=== PATIENT | female | born 1990 | race African-American/Black ===

== ENCOUNTER 2016-07-30 12:31 | Emergency (ER) | payer SELFPAY ==
[~2016-07-30] VITALS: Ht 167.6 cm; Wt 114.5 kg
[~2016-07-30 12:31] MED LIST: 00186-0372-20 IH; ADVAIR IH; ALBUTEROL SULFAT3 M3; ALBUTEROL SULFAT3 M3 IH; ALBUTEROL0.83 MG/ML IH; ALBUTEROL1.25 MG/3 IH; AMOXICILLIN 50500 MG PO; AMOXICILLIN875 MG PO; ATARAX50 MG PO; AUGMENTIN XR 101 TER PO; BENADRYL25 M2; BUSPAR DIVIDOSE15 MG PO; BUSPAR10 MG; BUSPAR5 MG PO; CELEXA10 MG PO; CEPHALEXIN500 M1 PO; CLARITIN 1010 MG/TAB PO; CLARITIN PO; CLARITIN10 MG PO; CLARITIN5 MG/5 ML PO; CLARITON; CLEOCIN HC150 MG/CAP PO; CUTIVATE 60 ML60 ML TP; CYMBALTA 30MG30 MG PO; DEPO-PROVER150 MG/M1 IM; DESYREL 50MG50 MG PO; DULERA1 AR1 IH; EFFEXOR 75M75 MG/TAB PO; FLEXERIL 1010 MG/TAB PO; FLEXERIL5 MG PO; FLONASE NASAL S16 GM NS; FLONASEALLERGY NS; LORTAB 5/500 501 TAB PO; MACROBID 1100 MG/CAP PO; MEDROL 4MG DOSPA4 MG PO; MICROGESTIN 1.51 TAB PO; MOBIC15 MG PO; MOTRIN800 MG PO; MULTICHEW PO; NORCO 325 MG-51 TAB PO; PEN-VEE K500 MG PO; PERCOCET 325 MG1 TA2 PO; PERIACTIN 4MG TA4 MG PO; PREDNISONE10 MG; PREDNISONE20 MG PO; PRENATAL1 TA1 PO; PRILOSEC 20MG20 MG PO; PROVENTIL0.09 MG/A1 IH; PULMICORT0.2 MG/AC1 IH; PULMICORT0.5 MG/2 M IH; PULMICORT180 MCG/A1 IH; REGLAN 10MG10 MG/TAB PO; RITE AID LICE T59 ML TP; ROBAXIN 50500 MG/TAB PO; ROBAXIN 75750 MG/TAB PO; SEROQUEL 2525 MG/TAB PO; SINGULAIR 110 MG/TAB PO; SINGULAIR10 MG PO; TYLENOL W/COD1 UDTAB PO; ULTRAM 50MG TAB50 MG PO; VALIUM 5MG T5 MG/TAB PO; VENTOLIN0.09 MG IH; VICODIN 5/5001 UDTAB PO; WOMEN'S DAILY F1 TAB PO; ZITHROMAX 250M250 MG PO; ZITHROMAX TRI-500 MG PO; ZITHROMAX Z PA250 MG PO; ZOFRAN4 MG PO; ZYRTEC10 MG PO; [UNRECOGNIZED DRUG - OTHER]
[2016-07-30 12:33] VITALS: BP 120/84; PULSE 121; TEMP 99
[2016-07-30] MEDS ORDERED: PREDNISONE20 MG PO (13:21)
[2016-07-30] MEDS ORDERED: VENTOLIN0.09 MG IH (13:21)
[2016-07-30] MEDS ORDERED: ZOFRAN8 MG PO (14:09)
== END 2016-07-30 14:15 | disposition home or self-care (01) ==
LOC: COL.ER 12:31
DX: J06.9 Acute upper respiratory infection, unspecified (principal); J02.9 Acute pharyngitis, unspecified; B97.89 Other viral agents as the cause of diseases classified elsewhere
CPT/HCPCS: J7512

== ENCOUNTER → 2016-12-05 | Outpatient (CLI) | payer OTHER ==
[~2016-12-05] MED LIST changes: +ZOFRAN8 MG PO
== END ==
LOC: COL.RAD 12-03 08:15
DX: N92.6 Irregular menstruation, unspecified (principal)

== ENCOUNTER → 2017-05-18 | Outpatient (CLI) | payer OTHER ==
[~2017-05-18] VITALS: Ht 170.2 cm; Wt 110.9 kg
[~2017-05-18] MED LIST changes: +MOBIC 7.5MG7.5 MG PO; +ZYRTEC 10MG10 MG PO
[2017-05-18 13:57] VITALS: BP 106/70; PULSE 100
== END ==
LOC: LIGHT 10:14 → SUN.DIA 06-18 10:24 → LIGHT 06-18 10:33
DX: E66.9 Obesity, unspecified (principal); Z68.38 Body mass index [BMI] 38.0-38.9, adult; Z71.3 Dietary counseling and surveillance; M54.5 Low back pain

== ENCOUNTER 2017-07-21 15:43 | Inpatient (IN) | payer OTHER ==
[~2017-07-21] VITALS: Ht 167.6 cm; Wt 111.8 kg
[~2017-07-21 15:43] MED LIST changes: -EFFEXOR 75M75 MG/TAB PO; +EFFEXOR XR75 MG/CAP PO
[2017-08-12] VITALS (14 sets, daily range): BP systolic 110–136; BP diastolic 76–91; PULSE 87–108; TEMP 97.7–98.4
[2017-08-12] MEDS ORDERED: CHEWABLE VITE W1 CTB PO (06:46)
[2017-08-12] MEDS ORDERED: LIDODERM 5% PATC1 EA TP (06:47)
[2017-08-12] MEDS ORDERED: NASAL MOISTURIZ45 ML NS (06:47)
[2017-08-12] MEDS ORDERED: ALBUTEROL0.83 MG/ML IH (06:48)
[2017-08-13 01:45] VITALS: BP 114/72; PULSE 92; TEMP 98.8
[2017-08-13 05:06] VITALS: BP 120/69; PULSE 91; TEMP 99
[2017-08-13 09:40] VITALS: BP 125/72; PULSE 97; TEMP 99
[2017-08-13 12:14] VITALS: BP 114/65; PULSE 85; TEMP 98.5
[2017-08-13 17:18] VITALS: BP 116/73; PULSE 89; TEMP 98.8
[2017-08-13 21:57] VITALS: BP 125/92; PULSE 89; TEMP 98.8
[2017-08-14 01:34] VITALS: BP 123/87; PULSE 91; TEMP 98.5
[2017-08-14 05:05] VITALS: BP 108/68; PULSE 94; TEMP 98.2
== END 2017-08-14 09:40 | disposition home or self-care (01) | DRG 621 ==
LOC: INPTSU 08-12 05:26 → SURG 08-12 07:30 → SDCO 08-12 09:30 → SURG 08-12 09:30 → EDSTATUS 08-12 09:30 → SURG 08-12 09:50
PROVIDERS: Surgery
PROC: 0DB64Z3 Excision of Stomach, Percutaneous Endoscopic Approach, Vertical (ICD-10-PCS; principal; 2017-08-12 07:30)
DX: E66.01 Morbid (severe) obesity due to excess calories (principal); Z68.38 Body mass index [BMI] 38.0-38.9, adult; J45.909 Unspecified asthma, uncomplicated; G89.29 Other chronic pain; M54.5 Low back pain
CPT/HCPCS: A9284; J0690; J1100; J1170; J1885; J2405; J2550; J2704; J3010; J7120

== ENCOUNTER → 2017-07-29 | Outpatient (CLI) | payer OTHER ==
[~2017-07-29] VITALS: Ht 170.2 cm; Wt 114.5 kg
[~2017-07-29] MED LIST changes: +EFFEXOR 75M75 MG/TAB PO; -EFFEXOR XR75 MG/CAP PO
== END ==
LOC: LIGHT 11:07
DX: Z01.89 Encounter for other specified special examinations (principal)

== ENCOUNTER → 2017-08-24 | Outpatient (CLI) | payer OTHER ==
[~2017-08-24] VITALS: Ht 167.6 cm; Wt 105.9 kg
[~2017-08-24] MED LIST changes: +CALCIUM CITRATE1 TA1 PO; +CHEWABLE VITE W1 CTB PO; -EFFEXOR 75M75 MG/TAB PO; +EFFEXOR XR75 MG/CAP PO; +LIDODERM 5% PATC1 EA TP; +NASAL MOISTURIZ45 ML NS; +STOOL SOFTENER100 M2 PO; +VITAMIN D32000 I1 PO
[2017-08-24 14:51] VITALS: BP 118/70; PULSE 100
== END ==
LOC: LIGHT 14:06
DX: E66.9 Obesity, unspecified (principal); Z68.37 Body mass index [BMI] 37.0-37.9, adult; Z71.3 Dietary counseling and surveillance; M54.5 Low back pain; J45.909 Unspecified asthma, uncomplicated

== ENCOUNTER → 2017-09-21 | Outpatient (CLI) | payer OTHER ==
[~2017-09-21] VITALS: Ht 167.6 cm; Wt 102.3 kg
[~2017-09-21] MED LIST changes: -SEROQUEL 2525 MG/TAB PO; +SEROQUEL XR50 MG PO; +ZOLOFT 50MG50 MG PO
[2017-09-21 15:02] VITALS: BP 94/60; PULSE 76
== END ==
LOC: LIGHT 09:41
DX: E66.9 Obesity, unspecified (principal); Z68.36 Body mass index [BMI] 36.0-36.9, adult; Z71.3 Dietary counseling and surveillance; M54.5 Low back pain; J45.909 Unspecified asthma, uncomplicated; Z98.84 Bariatric surgery status

== ENCOUNTER → 2017-11-02 | Outpatient (CLI) | payer OTHER ==
[~2017-11-02] VITALS: Ht 167.6 cm; Wt 93.7 kg
[~2017-11-02] MED LIST changes: +FLINTSTONES W/I1 CTB PO; +ZANAFLEX 4MG TAB4 MG PO; +ZOLOFT 100MG100 MG PO; -ZOLOFT 50MG50 MG PO
[2017-11-02 14:35] VITALS: BP 96/70; PULSE 92
== END ==
LOC: LIGHT 12:59
DX: E66.9 Obesity, unspecified (principal); Z68.33 Body mass index [BMI] 33.0-33.9, adult; Z71.3 Dietary counseling and surveillance; J45.909 Unspecified asthma, uncomplicated; Z98.84 Bariatric surgery status

== ENCOUNTER → 2018-01-25 | Outpatient (CLI) | payer OTHER ==
[~2018-01-25] VITALS: Ht 167.6 cm; Wt 81.0 kg
[~2018-01-25] MED LIST changes: +WELLBUTRIN XL300 M1 PO
[2018-01-25 14:28] VITALS: BP 98/70; PULSE 80
== END ==
LOC: LIGHT 14:16
DX: E66.9 Obesity, unspecified (principal); Z68.28 Body mass index [BMI] 28.0-28.9, adult; Z71.3 Dietary counseling and surveillance; M54.5 Low back pain; J45.909 Unspecified asthma, uncomplicated; Z98.84 Bariatric surgery status
CPT/HCPCS: G0463

== ENCOUNTER → 2018-06-14 | Outpatient (CLI) | payer OTHER ==
[~2018-06-14] VITALS: Ht 167.6 cm; Wt 72.6 kg
[~2018-06-14] MED LIST changes: +KLONOPIN 0.5MG0.5 MG PO; +PRISTIQ 50 MG T50 MG PO; +SOMA 350MG350 MG/TAB PO
[2018-06-14 14:52] VITALS: BP 110/70; PULSE 76
== END ==
LOC: LIGHT 13:18
DX: M54.5 Low back pain (principal); J45.909 Unspecified asthma, uncomplicated; E66.01 Morbid (severe) obesity due to excess calories; Z68.25 Body mass index [BMI] 25.0-25.9, adult; Z71.3 Dietary counseling and surveillance
CPT/HCPCS: G0463

== ENCOUNTER → 2018-11-01 | Outpatient (CLI) | payer OTHER ==
[~2018-11-01] VITALS: Ht 167.6 cm; Wt 68.3 kg
[~2018-11-01] MED LIST changes: +B-121000 MCG PO; +MELATONIN5 M1 SL; +NATURAL IRON65 MG PO; +PRENATAL VITAMI1 TA3 PO
[2018-11-01 15:20] VITALS: BP 102/60; PULSE 76
== END ==
LOC: LIGHT 07-26 15:51
DX: M54.5 Low back pain (principal); J45.909 Unspecified asthma, uncomplicated; Z98.84 Bariatric surgery status; E66.9 Obesity, unspecified; Z68.24 Body mass index [BMI] 24.0-24.9, adult; Z71.3 Dietary counseling and surveillance
CPT/HCPCS: G0463

== ENCOUNTER 2019-02-07 15:00 | Outpatient (RCR) | payer OTHER ==
[2019-02-19] MEDS ORDERED: KLONOPIN 1MG1 MG PO (14:13)
== END 2019-03-08 10:30 | disposition home or self-care (01) ==
LOC: WSC 15:00
DX: O99.89 Other specified diseases and conditions complicating pregnancy, childbirth and the puerperium (principal); Z3A.22 22 weeks gestation of pregnancy

== ENCOUNTER 2019-02-19 13:50 | Outpatient (CLI) | payer OTHER ==
[~2019-02-19] VITALS: Ht 167.6 cm; Wt 78.6 kg
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
[2019-02-19 14:02] VITALS: BP 100/62; PULSE 121; TEMP 98
[2019-02-19] MEDS ORDERED: KLONOPIN 1MG1 MG PO (14:13)
[2019-02-19 14:50] VITALS: BP 100/62; PULSE 120; TEMP 97.9
== END 2019-02-19 14:50 | disposition home or self-care (01) ==
LOC: LDRO 13:50 → LDR 14:40 → LDRO 14:50 → LDR 14:50
DX: O99.89 Other specified diseases and conditions complicating pregnancy, childbirth and the puerperium (principal); R10.2 Pelvic and perineal pain; Z3A.37 37 weeks gestation of pregnancy
CPT/HCPCS: OP

== ENCOUNTER 2019-03-01 23:07 | Outpatient (CLI) | payer MEDICAID ==
[~2019-03-01] VITALS: Ht 167.6 cm; Wt 78.6 kg
[~2019-03-01 23:07] MED LIST changes: +KLONOPIN 1MG1 MG PO
--- NOTE | 2019-03-01 23:15 | NUR ---
Pt arrived on unit escorted by and with complaints of vaginal pressure and irregular contractions. Pt denies any leaking of fluid or vaginal bleeding and reports normal movement. EFM and toco monitors started. Vital signs WNL. SVE by this RN -/-4. Dr. Goldberg on the unit. FHR tracing reviewed.
[2019-03-01 23:21] VITALS: BP 95/66; PULSE 126; TEMP 97.5
--- NOTE | 2019-03-02 | NUR ---
Request for records from [facility] signed by pt and sent.
--- NOTE | 2019-03-02 00:10 | NUR ---
Orders for discharge home received.
== END 2019-03-02 00:25 | disposition home or self-care (01) ==
LOC: LDRO 23:07
DX: O62.9 Abnormality of forces of labor, unspecified (principal); Z3A.38 38 weeks gestation of pregnancy

== ENCOUNTER 2019-03-07 15:07 | Outpatient (CLI) | payer MEDICAID ==
[~2019-03-07] VITALS: Ht 167.6 cm; Wt 78.6 kg
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
[2019-03-07 15:18] VITALS: BP 78/48; PULSE 134
[2019-03-07 16:04] VITALS: BP 94/65; PULSE 98
--- NOTE | 2019-03-07 16:15 | NUR ---
1604- This RN at bedside. Discusses plan to discharge home. Encouraged Pt to follow-up at the office as scheduled. EFM and TOCO off. Pt up to bathroom to change into street clothes. 1615- Discharge paperwork explained and given. Pt denies questions at this time. Ambulates off unit in stable condition.
== END 2019-03-07 16:15 | disposition home or self-care (01) ==
LOC: LDRO 15:07 → LDR 15:10 → LDRO 16:15
DX: O99.89 Other specified diseases and conditions complicating pregnancy, childbirth and the puerperium (principal); R25.2 Cramp and spasm; Z3A.39 39 weeks gestation of pregnancy
CPT/HCPCS: OP

== ENCOUNTER 2019-03-11 20:33 | Outpatient (CLI) | payer MEDICAID ==
[~2019-03-11] VITALS: Ht 167.6 cm; Wt 78.6 kg
[2019-03-11 21:15] VITALS: BP 106/74; PULSE 91; TEMP 97.6
[2019-03-11 21:45] VITALS: BP 107/72; PULSE 78
[2019-03-11 22:03] VITALS: BP 104/68; PULSE 78
--- NOTE | 2019-03-11 22:03 | NUR ---
SVE UNCHANGED, MONITORING DC'D AT THIS TIME, PT MAY DC HOME PER DR. JOHNSON.
--- NOTE | 2019-03-11 22:15 | NUR ---
DISCHARGE INSTRUCTIONS REVIEWED WITH PT AND SPOUSE, UNDERSTANDING VERBALIZED. PT LEFT THE UNIT AMBULATORY WITH SPOUSE.
== END 2019-03-11 22:15 | disposition home or self-care (01) ==
LOC: LDRO 20:33 → LDR 21:53 → LDRO 22:15
DX: O99.89 Other specified diseases and conditions complicating pregnancy, childbirth and the puerperium (principal); R25.2 Cramp and spasm; Z3A.40 40 weeks gestation of pregnancy
CPT/HCPCS: OP

== ENCOUNTER 2019-03-18 06:56 | Inpatient (IN) | payer MEDICAID ==
[2019-03-18] VITALS (22 sets, daily range): BP systolic 98–119; BP diastolic 62–78; PULSE 68–101; TEMP 98–98.2
[~2019-03-18] VITALS: Ht 167.6 cm; Wt 81.4 kg
--- NOTE | 2019-03-18 07:30 | NUR ---
0700- Pt arrives on unit ambulatory with , Enoc, for scheduled induction. Pt into bathroom, changes into gown, voids. 0707- Pt into bed, EFM and TOCO on and tracing. VSS. 0718- UC noted on monitor. FHR variable down to 120bpm that started to recover then late decel down to 75bpm, decel lasted approximately 130secs before returning to baseline. 07- This RN at bedside, Pt repositioned to .
[2019-03-18] MEDS ORDERED: SALINE 45 ML45 ML NS (07:53)
[2019-03-18 08:37] LABS: BASO % 0.3 % (0.0-2.0); EOS % 0.5 % (0-4.0); GRAN # 4.5 (1.4-6.5); GRAN % 60.9 % (42.2-75.2); HEMOGLOBIN 10.8 g/dl (12.5-16.0); LYMPH # 2.3 (1.2-3.4); LYMPH % 30.8 % (20.0-51.0); MEAN CELL VOLUME 78 fl (80.0-100.0); MEAN CORPUSCULAR HEMOGLOBIN 25 pg (27.0-31.0); MEAN CORPUSCULAR HGB CONC 31 g/dl (33.0-37.0); MEAN PLATELET VOLUME 10.9 fl (7.4-10.4); MONO # 0.5 (0.1-0.6); MONO % 7.1 % (1.7-9.3); PLATELET COUNT 222 K/mm3 (130-400); RED BLOOD COUNT 4.41 M/mm3 (4.10-5.30); REDCELL DISTRIBUTION WIDTH-CV 14.9 % (11.5-14.5)
[2019-03-18 08:52] LABS: HEMATOCRIT 34.5 % (37.0-47.0)
--- NOTE | 2019-03-18 09:30 | NUR ---
0915- Pt assisted to sitting on side of bed for epidural placement. O2 sat monitor on and tracing. FHR noted to be tracing materal HR due to maternal position. 926- Test dose by BELKIS Arteaga, see anesthesia record. 32- O2 sat monitor removed, Pt assisted to LL. FHR monitor adjusted and tracing well.
--- NOTE | 2019-03-18 10:29 | NUR ---
1017- SVE, Pt complete/+2, complaining of pressure with UCs. Dr Clarke called to bedside for delivery, at office, coming now. 1020- Dr Parks at bedside as stand-by for Dr Clarke, Pt encouraged to breathe through UCs and try not to push, Pt well controlled. 1021- Pitocin off. Fabienne Nursery RN at bedside. 1026- Dr Clarke at bedside. Pt and room prepped for delivery. 1029- Pt encouraged to push with UC, of viable male . Cord clamped and cut. taken to warmer per mom's request, tended to by Nursery RN. 1033- Spontaneous delivery of placenta, Pitocin started at 333ml/hr. Fundus massaged to firm by MD. Perineal laceration repaired by MD. Bleeding noted to be moderate with small clots. 1040- Methergine 0.2mg given IM per MD VO. Pericare completed. Clean chux and ice pack under Pt. Pt tolerated well. Infant placed skin-2-skin with mom.
[2019-03-18 10:40] LABS: TRICYCLIC ANTIDEPRESS URINE NEGATIVE
[2019-03-19 00:05] VITALS: BP 109/74; PULSE 83; TEMP 97.6
[2019-03-19 07:25] VITALS: BP 86/57; PULSE 73; TEMP 97.8
[2019-03-19] MEDS ORDERED: PERCOCET 325 MG1 TA2 PO (09:48)
--- NOTE | 2019-03-19 15:03 | NUR ---
GEOFFREY consult-see baby chart. CPS Report # [id number]
--- NOTE | 2019-03-19 16:20 | NUR ---
1540 PT HAS A FLAT AFFECT AND TAKES A WHILE TO ANSWER A QUESTION. DOES HOLD AND FEED THE BABY. IS NOT OVERLY AFFECTIONATE WITH BABY.
== END 2019-03-19 15:40 | disposition home or self-care (01) | DRG 807 ==
LOC: LDR 06:56 → OB 09:06
PROVIDERS: ADMIT Obstetrics & Gynecology
PROC: 10E0XZZ Delivery of Products of Conception, External Approach (ICD-10-PCS; principal; 2019-03-18)
PROC: 10907ZC Drainage of Amniotic Fluid, Therapeutic from Products of Conception, Via Natural or Artificial Opening (ICD-10-PCS; 2019-03-18)
PROC: 3E033VJ Introduction of Other Hormone into Peripheral Vein, Percutaneous Approach (ICD-10-PCS; 2019-03-18)
PROC: 0HQ9XZZ Repair Perineum Skin, External Approach (ICD-10-PCS; 2019-03-18)
DX: O48.0 Post-term pregnancy (principal); Z37.0 Single live birth; Z3A.41 41 weeks gestation of pregnancy; O62.2 Other uterine inertia; O69.81X0 Labor and delivery complicated by cord around neck, without compression, not applicable or unspecified; O99.344 Other mental disorders complicating childbirth; F41.9 Anxiety disorder, unspecified; O99.844 Bariatric surgery status complicating childbirth; O75.89 Other specified complications of labor and delivery; O70.0 First degree perineal laceration during delivery
CPT/HCPCS: J2210; J2590; J7120

== ENCOUNTER 2019-03-26 02:55 | Emergency (ER) | payer MEDICAID ==
[~2019-03-26] VITALS: Ht 167.6 cm; Wt 65.9 kg
[~2019-03-26 02:55] MED LIST changes: +SALINE 45 ML45 ML NS
[2019-03-26 03:04] VITALS: TEMP 98.2
[2019-03-26 04:07] LABS: BASO % 0.3 % (0.0-2.0); EOS # 0.1 (0.0-0.7); EOS % 1.5 % (0-4.0); GRAN # 4.6 (1.4-6.5); GRAN % 67.5 % (42.2-75.2); HEMATOCRIT 38.8 % (37.0-47.0); HEMOGLOBIN 11.8 g/dl (12.5-16.0); LYMPH # 1.8 (1.2-3.4); LYMPH % 25.8 % (20.0-51.0); MEAN CELL VOLUME 80 fl (80.0-100.0); MEAN CORPUSCULAR HEMOGLOBIN 24 pg (27.0-31.0); MEAN CORPUSCULAR HGB CONC 30 g/dl (33.0-37.0); MEAN PLATELET VOLUME 10.1 fl (7.4-10.4); MONO # 0.3 (0.1-0.6); MONO % 4.8 % (1.7-9.3); PLATELET COUNT 340 K/mm3 (130-400); RED BLOOD COUNT 4.88 M/mm3 (4.10-5.30); REDCELL DISTRIBUTION WIDTH-CV 15.5 % (11.5-14.5)
[2019-03-26 04:17] LABS: ALBUMIN 3.5 gm/dL (3.5-5.0); BILIRUBIN,TOTAL 0.3 mg/dL (0.0-1.0); CALCIUM 8.6 mg/dL (8.4-10.2); CREATININE, serum 0.45 (0.52-1.25); TOTAL PROTEIN 6.7 gm/dL (6.4-8.2)
[2019-03-26 06:20] LABS: COLLECTION METHOD CLEAN CATCH
[2019-03-26 07:18] LABS: MUCOUS Present /lpf; PH 6 (5-8); URINE APPEARANCE Cloudy; URINE BACTERIA None Seen /hpf; URINE BILIRUBIN Negative (NEGATIVE); URINE BLOOD 3+ (NEGATIVE); URINE COLOR Yellow; URINE GLUCOSE Negative (NEGATIVE); URINE KETONE Negative (NEGATIVE); URINE LEUKOCYTE ESTERASE 2+ (NEGATIVE); URINE NITRATE Negative (NEGATIVE); URINE PROTEIN(semi-quant) 1+ (NEGATIVE); URINE UROBILINOGEN Negative (NEGATIVE)
[2019-03-26] MEDS ORDERED: CIPRO 500MG TA500 MG PO (07:30)
[2019-03-26 07:51] VITALS: BP 117/84; PULSE 57
== END 2019-03-26 08:15 | disposition home or self-care (01) ==
LOC: COL.ER 02:55
PROVIDERS: Emergency Medicine
DX: O86.20 Urinary tract infection following delivery, unspecified (principal); J45.909 Unspecified asthma, uncomplicated
CPT/HCPCS: A4216; J0696; J2405; J3010; J7030

== ENCOUNTER → 2019-04-04 | Outpatient (CLI) | payer MEDICAID ==
[~2019-04-04] VITALS: Ht 167.6 cm; Wt 66.7 kg
[~2019-04-04] MED LIST changes: +CIPRO 500MG TA500 MG PO
[2019-04-04 14:13] VITALS: BP 97/80; PULSE 60
== END ==
LOC: LIGHT 13:14
DX: M54.5 Low back pain (principal); J45.909 Unspecified asthma, uncomplicated; Z98.84 Bariatric surgery status; E66.9 Obesity, unspecified; Z68.23 Body mass index [BMI] 23.0-23.9, adult; Z71.3 Dietary counseling and surveillance
CPT/HCPCS: G0463

== ENCOUNTER 2020-01-14 18:49 | Emergency (ER) | payer MEDICAID ==
[~2020-01-14] VITALS: Ht 167.6 cm; Wt 52.3 kg
[2020-01-14 19:01] VITALS: BP 109/75; TEMP 99.8
[2020-01-14 20:16] VITALS: PULSE 118
== END 2020-01-14 20:16 | disposition home or self-care (01) ==
LOC: COL.ER 18:49
DX: S60.211A Contusion of right wrist, initial encounter (principal); W10.9XXA Fall (on) (from) unspecified stairs and steps, initial encounter; Y93.01 Activity, walking, marching and hiking

== ENCOUNTER 2020-05-08 04:45 | Emergency (ER) | payer MEDICAID ==
[~2020-05-08] VITALS: Ht 167.6 cm; Wt 56.4 kg
[2020-05-08 04:55] VITALS: TEMP 98.2
[2020-05-08 05:21] LABS: COLLECTION METHOD CLEAN CATCH
[2020-05-08 05:24] LABS: BASO % 0.3 % (0.0-2.0); EOS # 0.1 (0.0-0.7); EOS % 0.9 % (0-4.0); GRAN # 3.9 (1.4-6.5); GRAN % 59.5 % (42.2-75.2); HEMOGLOBIN 10.2 g/dl (12.5-16.0); LYMPH # 2.1 (1.2-3.4); LYMPH % 32.3 % (20.0-51.0); MEAN CELL VOLUME 84 fl (80.0-100.0); MEAN CORPUSCULAR HEMOGLOBIN 27 pg (27.0-31.0); MEAN CORPUSCULAR HGB CONC 33 g/dl (33.0-37.0); MEAN PLATELET VOLUME 9.2 fl (7.4-10.4); MONO # 0.4 (0.1-0.6); MONO % 6.8 % (1.7-9.3); PLATELET COUNT 302 K/mm3 (130-400); RED BLOOD COUNT 3.75 M/mm3 (4.10-5.30); REDCELL DISTRIBUTION WIDTH-CV 12.9 % (11.5-14.5)
[2020-05-08 05:25] LABS: HEMATOCRIT 31.4 % (37.0-47.0)
[2020-05-08 05:32] LABS: MUCOUS Present /lpf; PH 6 (5-8); URINE APPEARANCE Hazy; URINE BACTERIA None Seen /hpf; URINE BILIRUBIN Negative (NEGATIVE); URINE BLOOD Negative (NEGATIVE); URINE CALCIUM OXALATE CRYSTAL Present /hpf; URINE COLOR Yellow; URINE GLUCOSE Negative (NEGATIVE); URINE KETONE Trace (NEGATIVE); URINE LEUKOCYTE ESTERASE 1+ (NEGATIVE); URINE NITRATE Negative (NEGATIVE); URINE PROTEIN(semi-quant) Negative (NEGATIVE); URINE RBC 0-2 /hpf; URINE UROBILINOGEN >=4.0 mg/dL (NEGATIVE)
[2020-05-08 05:35] LABS: ALBUMIN 3.5 gm/dL (3.5-5.0); BILIRUBIN,TOTAL 0.3 mg/dL (0.0-1.0); CALCIUM 8.6 mg/dL (8.4-10.2); CREATININE, serum 0.43 (0.52-1.25); POTASSIUM 3.2 mmol/L (3.4-5.0); TOTAL PROTEIN 6.6 gm/dL (6.4-8.2)
[2020-05-08 05:36] LABS: TRICYCLIC ANTIDEPRESS URINE NEGATIVE
[2020-05-08 07:13] VITALS: BP 97/67; PULSE 97
== END 2020-05-08 07:13 | disposition home or self-care (01) ==
LOC: COL.ER 04:45
PROVIDERS: Emergency Medicine
DX: O26.892 Other specified pregnancy related conditions, second trimester (principal); R20.2 Paresthesia of skin; J45.909 Unspecified asthma, uncomplicated; Z3A.20 20 weeks gestation of pregnancy
CPT/HCPCS: J7030

== ENCOUNTER 2020-07-19 07:03 | Emergency (ER) | payer MEDICAID ==
[~2020-07-19] VITALS: Ht 167.6 cm; Wt 68.2 kg
[2020-07-19] MEDS ORDERED: AMOXICILLIN 50500 MG PO ×2 (07:28→08:09)
[2020-07-19] MEDS ORDERED: NORCO 325 MG-51 TAB PO (07:28)
--- NOTE | 2020-07-19 07:29 | NUR ---
This RN at bedside. EFM explained and placed. Patient denies any LOF, VB, or regular contractions. Reports normal movement. 0751- FHR reactive. EFM off. Report to ED RN.
[2020-07-19 08:09] VITALS: BP 102/63; PULSE 99; TEMP 98
== END 2020-07-19 08:09 | disposition home or self-care (01) ==
LOC: COL.ER 07:03
DX: O99.612 Diseases of the digestive system complicating pregnancy, second trimester (principal); K08.89 Other specified disorders of teeth and supporting structures; J45.909 Unspecified asthma, uncomplicated; Z3A.24 24 weeks gestation of pregnancy

== ENCOUNTER 2020-07-27 12:50 | Emergency (ER) | payer MEDICAID ==
[~2020-07-27] VITALS: Ht 167.6 cm; Wt 69.5 kg
[2020-07-27 13:05] VITALS: TEMP 98.7
[2020-07-27] MEDS ORDERED: TYLENOL 325MG325 MG PO (14:23)
[2020-07-27 14:40] VITALS: BP 113/73; PULSE 116
== END 2020-07-27 14:40 | disposition home or self-care (01) ==
LOC: COL.ER 12:50
DX: O26.893 Other specified pregnancy related conditions, third trimester (principal); M54.5 Low back pain; J45.909 Unspecified asthma, uncomplicated; Z3A.32 32 weeks gestation of pregnancy; Z79.51 Long term (current) use of inhaled steroids

== ENCOUNTER → 2020-09-14 | Outpatient (CLI) | payer MEDICAID ==
[~2020-09-14] MED LIST changes: +BACTRIM DS 8001 TAB PO; +TYLENOL 325MG325 MG PO; +ZITHROMAX500 M2 PO
== END ==
LOC: ZCOL.LAB 08:00
DX: Z20.822 Contact with and (suspected) exposure to COVID-19 (principal)

== ENCOUNTER 2020-09-18 18:40 | Inpatient (IN) | payer MEDICAID ==
[2020-09-18] VITALS (9 sets, daily range): BP systolic 101–113; BP diastolic 60–80; PULSE 82–121; TEMP 98.4–98.5
[~2020-09-18] VITALS: Ht 167.6 cm; Wt 72.3 kg
--- NOTE | 2020-09-18 18:35 | NUR ---
183- PT PRESENTS TO LDR COMPLAINING OF LEAKING FLUID, AMBULATORY TO ROOM LR5, CHANGED INTO GOWN. 1844- EFM X2 APPLIED. PT REPORTS FEELING BABY MOVE, STATES SHE HAS BEEN LEAKING SOME MILKY FLUID SINCE "EARLIER TODAY." DENIES VAGINAL BLEEDING, BUT STATES SHE HAS BEEN HAVING SOME INCONSISTENT CONTRACTIONS. PLAN OF CARE FOR A LABOR CHECK DISCUSSED AND QUESTIONS ANSWERED. 1849- AMNIOTRACE NEGATIVE FOR ROM. SVE BY THIS NURSE 2- WITH MILKY DISCHARGE BUT NO POOLING FLUID. PRESENTING PART IS BALLOTABLE WITH EXAM. 1899- NURSING ADMISSION HISTORY AND ASSESSMENT COMPLETE. ORAL HYDRATION PROVIDED. 1949- SVE BY THIS NURSE WITH MORE MILKY DISCHARGE. PRESENTING PART BETTER ENGAGED WITH THIS EXAM. NURSE DISCUSSES WITH PT STAYING ANOTHER HOUR AND RECHECKING CERVIX AGAIN. PT IS AGREEABLE WITH THIS PLAN OF CARE.
[~2020-09-18 18:40] MED LIST changes: -BACTRIM DS 8001 TAB PO; -ZITHROMAX500 M2 PO
--- NOTE | 2020-09-18 21:00 | NUR ---
2099- PT REPORTS HER CONTRACTIONS ARE STRONGER BUT NOT CLOSER TOGETHER, SVE BY THIS NURSE 4-5/-3. PLAN OF CARE FOR LABOR DISCUSSED WITH PT. 2102- DR JOHNSON CALLED AND UPDATED CHARTED, ORDERS RECEIVED FOR ADMISSION. 2119- IV START TO LEFT WRIST CHARTED. BLOOD DRAWN FOR LAB. LR INFUSING. PEN G INFUSING. 2144- CONSENTS SIGNED. 2154- PT STATES SHE IS GETTING MORE UNCOMFORTABLE AND WOULD LIKE TO START EPIDURAL PROCESS. 2199- JONES TAMAYO CALLED FOR EPIDURAL.
[2020-09-18 21:47] LABS: BASO % 0.2 % (0.0-2.0); EOS # 0.2 (0.0-0.7); EOS % 2.1 % (0-4.0); GRAN # 6.8 (1.4-6.5); LYMPH # 1.8 (1.2-3.4); LYMPH % 19.3 % (20.0-51.0); MEAN CELL VOLUME 66 fl (80.0-100.0); MEAN CORPUSCULAR HGB CONC 30 g/dl (33.0-37.0); MEAN PLATELET VOLUME 9.5 fl (7.4-10.4); MONO # 0.6 (0.1-0.6); MONO % 5.8 % (1.7-9.3); PLATELET COUNT 360 K/mm3 (130-400); RED BLOOD COUNT 4.23 M/mm3 (4.10-5.30); REDCELL DISTRIBUTION WIDTH-CV 18.6 % (11.5-14.5)
[2020-09-18 21:48] LABS: HEMATOCRIT 27.8 % (37.0-47.0); HEMOGLOBIN 8.3 g/dl (12.5-16.0); MEAN CORPUSCULAR HEMOGLOBIN 20 pg (27.0-31.0)
--- NOTE | 2020-09-18 22:22 | NUR ---
2222- PT UP TO BATHROOM BEFORE EPIDURAL PLACEMENT. 223- JONES WOOD FLOOR LAYER AT BEDSIDE FOR EPIDURAL PLACEMENT. PT POSITIONED SITTING UP ON EDGE OF BED. TIME OUT VERIFIED AND JONES ANSWERS PT QUESTIONS. 223- DIFFICULT TO TRACE HEART TONES DUE TO MATERNAL POSITION FOR EPIDURAL. 224- EPIDURAL TEST DOSE. PT TOLERATED WELL. 2245- EPIDURAL PROCEDURE COMPLETE. PT TOLERATED WELL. PT POSITIONED IN LEFT TILT FOR COMFORT AND MONITORS ADJUSTED. PT STARTING TO FEEL TINGLY FEET AND LEGS, CONTRACTIONS LESS PAINFUL.
--- NOTE | 2020-09-18 23:00 | NUR ---
2300- PT TURNED MORE TO LEFT. 2310- SVE BY THIS NURSE /-3. PT COMFORTABLE WITH CHECK. LR BOLUS STARTED. 2335- FHT'S IMPROVED. 0025- PT TURNED TO RIGHT TILT FOR FHT'S. PT COMFORTABLE WITH EPIDURAL. SECOND LR BAG INFUSING. PLAN OF CARE DISCUSSED WITH PT, QUESTIONS ANSWERED, AND PT VERBALIZES UNDERTSTANDING. 0120- SECOND DOSE OF PEN G INFUSING. STRAIGHT CATH FOR 50ML OF DARK YELLOW URINE. SVE BY THIS NURSE UNCHANGED. BULGING BAG OF HALEY PALPATED WITH EXAM. PT DENIES FURTHER NEEDS AT THIS TIME.
[2020-09-19] VITALS (29 sets, daily range): BP systolic 92–115; BP diastolic 58–78; PULSE 82–115; TEMP 97.4–98.4
--- NOTE | 2020-09-19 02:15 | NUR ---
0215- PT DENIES NEEDS AT THIS TIME. 0235- PT HAS EPIDSODE OF VOMITING. BASIN PROVIDED. PT DENIES FURTHER NEEDS.
--- NOTE | 2020-09-19 03:25 | NUR ---
0325- PT BOYFRIEND COMES TO DESK STATING PT'S WATER HAS BROKEN, NURSE TO BEDSIDE. COPIOUS AMOUNTS OF FLUID NOTED. CLEAN GOWN AND LINENS PROVIDED. 0330- SVE BY THIS NURSE COMPLETE AND +2. 0332- DR JOHNSON CALLED AND NOTIFIED OF NEED FOR DELIVERY. 0342- DR JOHNSON AT BEDSIDE. DISCUSSED PUSHING WITH PT. 0347- FEET IN STIRRUPS, PT BEGINS COACHED PUSHING. 0348- SPONTANEOUS VAGINAL DELIVERY OF VIABLE MALE, VIGOROUS, TO WARMER AND CARE OF NURSERY STAFF. 0351- SPONTANEOUS DELIVERY OF PLACENTA, EXAMINED BY DR JOHNSON, REPAIR IN PROGRESS. 0400- REPAIR COMPLETE. PT TOLERATED WELL. COUNTS CORRECT. PERICARE PROVIDED. ICEPACK TO PERINEUM. FEET DOWN FROM FOOTPLATES AND RECOVERY STARTED.
--- NOTE | 2020-09-19 04:30 | NUR ---
0430- MODERATE BLEEDING WITH FUNDAL CHECK, FUNDUS FIRM. URINE EXPRESSED WITH BLOOD DURING FUNDAL MASSAGE. 0445- FUNDUS FIRM WITH MASSAGE. MODERATE BLEEDING. 0500- FUNDUS FIRM WITH MASSAGE, MODERATE BLEEDING. 0520- FUNDUS FIRM WITH MASSAGE, MODERATE BLEEDING. URINE EXPRESSED DURING FUNDAL MASSAGE. PAD AND UNDERBUTT PAD CHANGED OUT.
--- NOTE | 2020-09-19 05:45 | NUR ---
0545- STRAIGHT CATH FOR 200ML URINE. MODERATE FREE FLOW BLEEDING WITH FUNDAL MASSAGE, 2 QUARTER SIZED CLOTS EXPRESSED. DISCUSSED PLAN OF CARE WITH PT FOR CONTINUED MODERATE BLEEDING DESPITE PITOCIN AND STRAIGHT CATHING. QUESTIONS ANSWERED. 1951- DR JOHNSON CALLED AND UPDATED WITH CONTINUED MODERATE BLEEDING. ORDERS FOR METHERGINE IM AND SECOND BAG OF PITOCIN TO INFUSE.
--- NOTE | 2020-09-19 08:54 | NUR ---
Dr. Clarke at bedside to assessment fundual height and bleeding. Fundus firm U2. Scat lochia with clot noted. VSS. No new orders.
[2020-09-20 01:09] VITALS: BP 102/74; PULSE 81; TEMP 97.7
[2020-09-20 04:22] VITALS: BP 86/48; PULSE 80; TEMP 97.5
[2020-09-20 07:08] LABS: BASO # 0.1 (0.0-0.2); BASO % 0.6 % (0.0-2.0); EOS # 0.2 (0.0-0.7); EOS % 1.9 % (0-4.0); GRAN # 6.9 (1.4-6.5); GRAN % 69.1 % (42.2-75.2); LYMPH # 2.2 (1.2-3.4); LYMPH % 21.7 % (20.0-51.0); MEAN CELL VOLUME 69 fl (80.0-100.0); MEAN CORPUSCULAR HGB CONC 28 g/dl (33.0-37.0); MEAN PLATELET VOLUME 9.6 fl (7.4-10.4); MONO # 0.6 (0.1-0.6); MONO % 6.2 % (1.7-9.3); PLATELET COUNT 310 K/mm3 (130-400); RED BLOOD COUNT 4.24 M/mm3 (4.10-5.30); REDCELL DISTRIBUTION WIDTH-CV 18.8 % (11.5-14.5)
[2020-09-20 07:10] LABS: HEMATOCRIT 29.2 % (37.0-47.0); HEMOGLOBIN 8.3 g/dl (12.5-16.0); MEAN CORPUSCULAR HEMOGLOBIN 20 pg (27.0-31.0)
[2020-09-20 07:30] VITALS: BP 94/64; PULSE 82; TEMP 97.9
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
--- NOTE | 2020-09-20 10:18 | NUR ---
Initial visit; Parents thanked Catalogue Illustrator for offering congratulations and God's blessings for the of their son. Catalogue Illustrator thanked family for choosing [facility].
[2020-09-20] MEDS ORDERED: PERCOCET 325 MG1 TA2 PO (14:05)
== END 2020-09-20 16:40 | disposition home or self-care (01) | DRG 807 ==
LOC: LDRO 18:40 → LDR 21:10 → OB 09-19 09:00
PROVIDERS: Obstetrics & Gynecology; ADMIT Obstetrics & Gynecology
PROC: 10E0XZZ Delivery of Products of Conception, External Approach (ICD-10-PCS; principal; 2020-09-18)
PROC: 0HQ9XZZ Repair Perineum Skin, External Approach (ICD-10-PCS; 2020-09-18)
DX: O99.02 Anemia complicating childbirth (principal); Z37.0 Single live birth; D64.9 Anemia, unspecified; O99.344 Other mental disorders complicating childbirth; F41.9 Anxiety disorder, unspecified; F32.9 Major depressive disorder, single episode, unspecified; O99.52 Diseases of the respiratory system complicating childbirth; J45.909 Unspecified asthma, uncomplicated; O99.824 Streptococcus B carrier state complicating childbirth; O70.0 First degree perineal laceration during delivery; Z3A.39 39 weeks gestation of pregnancy
CPT/HCPCS: J2210; J2540; J2590; J7120

== ENCOUNTER 2020-11-07 14:45 | Emergency (ER) | payer MEDICAID ==
[~2020-11-07] VITALS: Ht 167.6 cm; Wt 63.6 kg
[2020-11-07 14:46] VITALS: TEMP 97.6
[2020-11-07 15:53] LABS: COLLECTION METHOD CLEAN CATCH
[2020-11-07 16:00] LABS: BASO % 0.8 % (0.0-2.0); EOS % 0.4 % (0-4.0); GRAN # 2.6 (1.4-6.5); GRAN % 50.8 % (42.2-75.2); HEMATOCRIT 38.5 % (37.0-47.0); LYMPH # 2.2 (1.2-3.4); LYMPH % 42.7 % (20.0-51.0); MEAN CELL VOLUME 73 fl (80.0-100.0); MEAN CORPUSCULAR HEMOGLOBIN 21 pg (27.0-31.0); MEAN CORPUSCULAR HGB CONC 29 g/dl (33.0-37.0); MEAN PLATELET VOLUME 9.8 fl (7.4-10.4); MONO # 0.3 (0.1-0.6); MONO % 5.1 % (1.7-9.3); PLATELET COUNT 426 K/mm3 (130-400); RED BLOOD COUNT 5.31 M/mm3 (4.10-5.30); REDCELL DISTRIBUTION WIDTH-CV 25.4 % (11.5-14.5)
[2020-11-07 16:03] LABS: MUCOUS Present /lpf; PH 6 (5-8); URINE APPEARANCE Hazy; URINE BACTERIA None Seen /hpf; URINE BILIRUBIN Negative (NEGATIVE); URINE BLOOD Negative (NEGATIVE); URINE COLOR Yellow; URINE GLUCOSE Negative (NEGATIVE); URINE KETONE Negative (NEGATIVE); URINE LEUKOCYTE ESTERASE 1+ (NEGATIVE); URINE NITRATE Negative (NEGATIVE); URINE PROTEIN(semi-quant) 1+ (NEGATIVE)
[2020-11-07 16:11] LABS: ALBUMIN 4.1 gm/dL (3.5-5.0); BILIRUBIN,TOTAL 0.1 mg/dL (0.0-1.0); C-REACTIVE PROTEIN 0.7 mg/dL (0.0-0.9); CREATININE, serum 0.6 (0.52-1.25); TOTAL PROTEIN 8.3 gm/dL (6.4-8.2)
[2020-11-07] MEDS ORDERED: BACTRIM DS 8001 TAB PO (17:17)
[2020-11-07 17:42] VITALS: BP 108/71; PULSE 74
[2020-11-07] MEDS ORDERED: ZITHROMAX500 M2 PO (19:00)
== END 2020-11-07 17:42 | disposition home or self-care (01) ==
LOC: COL.ER 14:45
PROVIDERS: Nurse Practitioner
DX: R10.11 Right upper quadrant pain (principal); J45.909 Unspecified asthma, uncomplicated; Z98.84 Bariatric surgery status; Z32.02 Encounter for pregnancy test, result negative; Z79.51 Long term (current) use of inhaled steroids
CPT/HCPCS: J7030

== ENCOUNTER 2020-11-18 10:29 | Emergency (ER) | payer MEDICAID ==
[~2020-11-18] VITALS: Ht 167.6 cm; Wt 63.6 kg
[~2020-11-18 10:29] MED LIST changes: +BACTRIM DS 8001 TAB PO; +ZITHROMAX500 M2 PO
[2020-11-18 10:30] VITALS: TEMP 97.8
[2020-11-18] MEDS ORDERED: KLONOPIN 0.5MG0.5 MG PO (11:54)
[2020-11-18 12:08] VITALS: BP 115/88; PULSE 118
== END 2020-11-18 12:08 | disposition home or self-care (01) ==
LOC: COL.ER 10:29
DX: F41.9 Anxiety disorder, unspecified (principal); F15.10 Other stimulant abuse, uncomplicated; F19.10 Other psychoactive substance abuse, uncomplicated; I10 Essential (primary) hypertension; Z79.51 Long term (current) use of inhaled steroids

== ENCOUNTER 2021-01-15 16:55 | Emergency (ER) | payer MEDICAID ==
[~2021-01-15] VITALS: Ht 167.6 cm; Wt 61.4 kg
[2021-01-15 17:09] VITALS: BP 108/80; TEMP 98
[2021-01-15 17:45] VITALS: PULSE 96
== END 2021-01-15 17:45 | disposition home or self-care (01) ==
LOC: COL.ER 16:55
DX: S93.602A Unspecified sprain of left foot, initial encounter (principal); W13.4XXA Fall from, out of or through window, initial encounter

== ENCOUNTER 2021-01-22 16:46 | Emergency (ER) | payer MEDICAID ==
[~2021-01-22] VITALS: Ht 167.6 cm; Wt 61.4 kg
[2021-01-22 16:48] VITALS: TEMP 98.5
[2021-01-22 19:09] VITALS: BP 131/85; PULSE 89
== END 2021-01-22 19:12 | disposition home or self-care (01) ==
LOC: COL.ER 16:46
DX: F41.0 Panic disorder [episodic paroxysmal anxiety] (principal); Z79.899 Other long term (current) drug therapy

== ENCOUNTER 2021-04-28 00:54 | Emergency (ER) | payer MEDICAID ==
[~2021-04-28] VITALS: Ht 167.6 cm; Wt 61.4 kg
[2021-04-28 01:05] VITALS: BP 112/97; TEMP 98.3
[2021-04-28 01:33] VITALS: PULSE 83
== END 2021-04-28 01:33 | disposition home or self-care (01) ==
LOC: COL.ER 00:54
DX: S99.912A Unspecified injury of left ankle, initial encounter (principal); M79.672 Pain in left foot; J45.909 Unspecified asthma, uncomplicated; F41.9 Anxiety disorder, unspecified; Z79.899 Other long term (current) drug therapy; W20.8XXA Other cause of strike by thrown, projected or falling object, initial encounter; Y93.E5 Activity, floor mopping and cleaning; Y92.092 Bedroom in other non-institutional residence as the place of occurrence of the external cause

== ENCOUNTER 2021-05-12 05:26 | Emergency (ER) | payer MEDICAID ==
[~2021-05-12] VITALS: Ht 167.6 cm; Wt 59.1 kg
[2021-05-12 05:31] VITALS: TEMP 98.4
[2021-05-12 06:01] LABS: COLLECTION METHOD CLEAN CATCH
[2021-05-12 06:07] LABS: BASO # 0.1 K/mm3 (0.0-0.2); BASO % 0.7 % (0.0-2.0); EOS # 0.4 K/mm3 (0.0-0.7); EOS % 4.9 % (0-4.0); GRAN % 58.9 % (42.2-75.2); HEMOGLOBIN 10.7 g/dl (12.5-16.0); LYMPH # 2.4 K/mm3 (1.2-3.4); LYMPH % 27.5 % (20.0-51.0); MEAN CELL VOLUME 77 fl (80.0-100.0); MEAN CORPUSCULAR HEMOGLOBIN 24 pg (27.0-31.0); MEAN CORPUSCULAR HGB CONC 31 g/dl (33.0-37.0); MEAN PLATELET VOLUME 10.5 fl (7.4-10.4); MONO # 0.7 K/mm3 (0.1-0.6); MONO % 7.8 % (1.7-9.3); MUCOUS Present /lpf; PH 7 (5-8); PLATELET COUNT 378 K/mm3 (130-400); RED BLOOD COUNT 4.47 M/mm3 (4.10-5.30); REDCELL DISTRIBUTION WIDTH-CV 15.5 % (11.5-14.5); SQUAMOUS EPITHELIAL 0-2 /hpf; URINE APPEARANCE Clear; URINE BACTERIA Rare /hpf; URINE BILIRUBIN Negative (NEGATIVE); URINE BLOOD Negative (NEGATIVE); URINE COLOR Yellow; URINE GLUCOSE Negative (NEGATIVE); URINE KETONE Negative (NEGATIVE); URINE LEUKOCYTE ESTERASE Negative (NEGATIVE); URINE NITRATE Negative (NEGATIVE); URINE PROTEIN(semi-quant) Negative (NEGATIVE); URINE RBC 0-2 /hpf; URINE UROBILINOGEN Negative (NEGATIVE)
[2021-05-12 06:09] LABS: HEMATOCRIT 34.3 % (37.0-47.0)
[2021-05-12 06:26] LABS: ALANINE AMINOTRANSFERASE 10 U/L (0-55); ALBUMIN 3.5 gm/dL (3.5-5.0); ALKALINE PHOSPHATASE 54 U/L (40-150); ANION GAP 10 mmol/L (7-16); AST,SGOT 19 U/L (5-34); BILIRUBIN,TOTAL 0.5 mg/dL (0.2-1.2); BLOOD UREA NITROGEN 10 mg/dL (7-19); CALCIUM 8.9 mg/dL (8.4-10.2); CARBON DIOXIDE 21 mmol/L (22-29); CHLORIDE 105 mmol/L (98-107); CREATININE, serum 0.69 mg/dL (0.57-1.11); GLUCOSE 96 mg/dL (70-99); POTASSIUM 3.9 mmol/L (3.5-4.5); SODIUM 136 mmol/L (136-145); TOTAL PROTEIN 6.9 gm/dL (6.2-8.1)
[2021-05-12 06:32] LABS: TROPONIN-I < 0.010 ng/mL (0.00-0.033)
[2021-05-12 08:20] VITALS: BP 108/79; PULSE 74
== END 2021-05-12 07:56 | disposition home or self-care (01) ==
LOC: COL.ER 05:26
PROVIDERS: Emergency Medicine
DX: J06.9 Acute upper respiratory infection, unspecified (principal); J45.909 Unspecified asthma, uncomplicated; Z20.822 Contact with and (suspected) exposure to COVID-19
CPT/HCPCS: J2405; J7030

== ENCOUNTER 2021-07-04 01:10 | Emergency (ER) | payer MEDICAID ==
[~2021-07-04] VITALS: Ht 167.6 cm; Wt 61.4 kg
[2021-07-04 01:13] VITALS: TEMP 97.9
[2021-07-04 01:36] LABS: BASO # 0.1 K/mm3 (0.0-0.2); BASO % 0.9 % (0.0-2.0); EOS # 0.1 K/mm3 (0.0-0.7); EOS % 2.4 % (0.0-4.0); GRAN # 2.7 K/mm3 (1.4-6.5); GRAN % 50.9 % (42.2-75.2); HEMATOCRIT 39.7 % (37.0-47.0); HEMOGLOBIN 12.6 g/dl (12.5-16.0); LYMPH # 2.1 K/mm3 (1.2-3.4); MEAN CELL VOLUME 75 fl (80.0-100.0); MEAN CORPUSCULAR HEMOGLOBIN 24 pg (27-31); MEAN CORPUSCULAR HGB CONC 32 g/dl (33.0-37.0); MONO # 0.4 K/mm3 (0.1-0.6); MONO % 6.6 % (1.7-9.3); PLATELET COUNT 486 K/mm3 (130-400); RED BLOOD COUNT 5.29 M/mm3 (4.10-5.30)
[2021-07-04 01:59] LABS: ALBUMIN 4.5 gm/dL (3.5-5.0); BILIRUBIN,TOTAL 0.7 mg/dL (0.2-1.2); CALCIUM 9.3 mg/dL (8.4-10.2); CREATININE, serum 0.8 mg/dL (0.57-1.11); POTASSIUM 3.9 mmol/L (3.5-4.5); TOTAL PROTEIN 8.3 gm/dL (6.2-8.1)
[2021-07-04 03:10] VITALS: BP 108/86; PULSE 105
== END 2021-07-04 03:10 | disposition home or self-care (01) ==
LOC: COL.ER 01:10
PROVIDERS: Nurse Practitioner
DX: F41.9 Anxiety disorder, unspecified (principal); J45.909 Unspecified asthma, uncomplicated; Z79.899 Other long term (current) drug therapy
CPT/HCPCS: J2060; J7030

== ENCOUNTER 2021-08-13 19:11 | Emergency (ER) | payer MEDICAID ==
[~2021-08-13] VITALS: Ht 167.6 cm; Wt 63.6 kg
[2021-08-13 19:35] VITALS: BP 106/57
[2021-08-13 20:37] LABS: BASO % 0.5 % (0.0-2.0); EOS # 0.3 K/mm3 (0.0-0.7); EOS % 3.6 % (0.0-4.0); GRAN # 4.5 K/mm3 (1.4-6.5); GRAN % 62.2 % (42.2-75.2); HEMOGLOBIN 11.2 g/dl (12.5-16.0); LYMPH # 2.1 K/mm3 (1.2-3.4); LYMPH % 28.4 % (20.0-51.0); MEAN CELL VOLUME 77 fl (80.0-100.0); MEAN CORPUSCULAR HEMOGLOBIN 24 pg (27-31); MEAN CORPUSCULAR HGB CONC 31 g/dl (33.0-37.0); MEAN PLATELET VOLUME 10.6 fl (7.4-10.4); MONO # 0.4 K/mm3 (0.1-0.6); MONO % 5.2 % (1.7-9.3); PLATELET COUNT 355 K/mm3 (130-400); RED BLOOD COUNT 4.69 M/mm3 (4.10-5.30); REDCELL DISTRIBUTION WIDTH-CV 17.5 % (11.5-14.5)
[2021-08-13 20:39] LABS: HEMATOCRIT 36.1 % (37.0-47.0)
[2021-08-13 20:55] LABS: ALBUMIN 3.8 gm/dL (3.5-5.0); ALKALINE PHOSPHATASE 41 U/L (40-150); ANION GAP 10 mmol/L (7-16); AST,SGOT 11 U/L (5-34); BLOOD UREA NITROGEN 4 mg/dL (7-19); CALCIUM 8.7 mg/dL (8.4-10.2); CARBON DIOXIDE 18 mmol/L (22-29); CHLORIDE 108 mmol/L (98-107); CREATININE, serum 0.58 mg/dL (0.57-1.11); GLUCOSE 83 mg/dL (70-99); POTASSIUM 3.5 mmol/L (3.5-4.5); SODIUM 136 mmol/L (136-145)
[2021-08-13 20:58] LABS: ALANINE AMINOTRANSFERASE < 6 U/L (0-55)
[2021-08-13 21:30] LABS: BILIRUBIN,TOTAL 0.3 mg/dL (0.2-1.2)
[2021-08-13] MEDS ORDERED: IPRATROPIUM BROM3 M1 IH (23:07)
[2021-08-13] MEDS ORDERED: PREDNISONE20 MG PO (23:07)
[2021-08-13 23:20] VITALS: PULSE 70; TEMP 98.1
== END 2021-08-13 23:28 | disposition home or self-care (01) ==
LOC: COL.ER 19:11
PROVIDERS: Physician Assistant
DX: O99.511 Diseases of the respiratory system complicating pregnancy, first trimester (principal); J45.901 Unspecified asthma with (acute) exacerbation; Z20.822 Contact with and (suspected) exposure to COVID-19; Z3A.08 8 weeks gestation of pregnancy; Z79.899 Other long term (current) drug therapy
CPT/HCPCS: J7512

== ENCOUNTER 2021-08-19 18:56 | Emergency (ER) | payer MEDICAID ==
[~2021-08-19] VITALS: Ht 167.6 cm; Wt 63.6 kg
[~2021-08-19 18:56] MED LIST changes: +IPRATROPIUM BROM3 M1 IH
[2021-08-19 19:09] VITALS: TEMP 97.5
[2021-08-19 21:52] VITALS: BP 107/79; PULSE 86
== END 2021-08-19 21:45 | disposition home or self-care (01) ==
LOC: COL.ER 18:56
DX: O98.511 Other viral diseases complicating pregnancy, first trimester (principal); U07.1 COVID-19; Z3A.10 10 weeks gestation of pregnancy
CPT/HCPCS: J1100

== ENCOUNTER 2022-03-17 08:23 | Inpatient (IN) | payer MEDICAID ==
[~2022-03-17] VITALS: Ht 167.6 cm; Wt 80.5 kg
[2022-03-19] VITALS (33 sets, daily range): BP systolic 93–135; BP diastolic 50–74; PULSE 60–92; TEMP 80–98.7
[2022-03-19 13:42] LABS: TRICYCLIC ANTIDEPRESS URINE NEGATIVE
--- NOTE | 2022-03-19 14:23 | NUR ---
1312 PATIENT HERE FOR COMPLAINTS OF BLOOD ON TOILET PAPER SINCE YESTERDAY. EFM ON FHT 120 BABY VERY ACTIVE. IRREGULAR CONTRACTIONS PALPATE MILD. ASSESSMENT COMPLETED.SVE . PATIENT ADMITTED FOR INDUCTION OF LABOR. DR THOMAS UPDATED AND NO NEW ORDERS GIVEN. URINE OBTAINED FOR URINE DRUG SCREEN FOR HISTORY OF DRUG USE WHICH PATIENT DENIES DOING.
[2022-03-19 14:32] LABS: BASO % 0.5 % (0.0-2.0); EOS # 0.1 K/mm3 (0.0-0.7); EOS % 2.2 % (0.0-4.0); GRAN # 3.8 K/mm3 (1.4-6.5); GRAN % 68.2 % (42.2-75.2); HEMOGLOBIN 11.2 g/dl (12.5-16.0); LYMPH # 1.3 K/mm3 (1.2-3.4); LYMPH % 23.7 % (20.0-51.0); MEAN CELL VOLUME 75 fl (80.0-100.0); MEAN CORPUSCULAR HEMOGLOBIN 23 pg (27-31); MEAN CORPUSCULAR HGB CONC 30 g/dl (33.0-37.0); MEAN PLATELET VOLUME 10.2 fl (7.4-10.4); MONO # 0.3 K/mm3 (0.1-0.6); PLATELET COUNT 231 K/mm3 (130-400); RED BLOOD COUNT 4.92 M/mm3 (4.10-5.30)
--- NOTE | 2022-03-19 16:26 | NUR ---
1430 REPORT GEVEN TO JACKY MINOR RN TO ASSUME CARE AT THIS TIME
--- NOTE | 2022-03-19 19:12 | NUR ---
[place] LIVE SOURCE OPERATOR into room for epidural placement. Pt moved to sit @ side of bed. FHR tracing incomplete, related to maternal positioning.
--- NOTE | 2022-03-19 19:40 | NUR ---
Dr Clarke in, SVE with AROM, clear fluid. FSE placed.
--- NOTE | 2022-03-19 20:15 | NUR ---
FHT's with recurrent early decelerations to 100's. Dr Clarke continues @ L&D desk. 2018 FHTs deceleration to 70's, SVE Complete, +1. Pt states "I can feel him coming out. I'm not pushing" 2019 Dr Clarke and JENSENY into room. Pt prepped for delivery. [address] Clarke. 2026 Placenta delivers spont and intact with 3 vessell cord. Pitocin gtt to bolus rate.
--- NOTE | 2022-03-19 20:30 | NUR ---
Straight cath by Dr Leung with return of 200cc clear yellow urine, Lochia heavy, Bimanual exam by DR Leung yields clots. 2030 Methergine 0.2mg LAT 2036 Cytotech 600mcg placed rectally by Dr Leung. Lochia continues moderate, bimanual exam by Dr Leung yields more clots. Fundal massage by Dr Leung, continues. 2044 Lochia slowing. 2054 Pericare completed, ice pack to perineum, bed together.
--- NOTE | 2022-03-19 22:30 | NUR ---
Pt reports nausea. 150cc emesis. Fundus frim, no clots noted in lochia, pad weighed. Sprite and crackers given.
--- NOTE | 2022-03-19 23:30 | NUR ---
Up t o bathroom, via wheelchair as pt states "I get dizzy really easy" Voids good amount, performs own pericare. Pivot transfers to wheelchair and pt states "I do feel a little dizzy" cold washcloth provided. To room via wheelchair. Pt oriented to room, instructed to call for assistance when needs to get out of bed, verbalizes understanding.
[2022-03-20 04:15] VITALS: BP 114/68; PULSE 83
--- NOTE | 2022-03-20 05:45 | NUR ---
pt up to bathroom. Very slow guarded gait. Reports "it hurt from my back all the way down my L leg" Pt winces and tense with pain when lower back touched, no bruising noted at epidural site. Ambulates back to bed after voiding. oxycodone given. Asked pt if she has been able to sleep, she replies "my body is tired but my brain won't let me sleep" Asked pt if she's feeling anxious or worried. Pt denies, stating "I would tell you if it was. Ice pack to lower back.
[2022-03-20 07:31] VITALS: BP 116/58; PULSE 78; TEMP 98.2
[2022-03-20] MEDS ORDERED: IBU600 MG PO (08:54)
--- NOTE | 2022-03-20 09:33 | NUR ---
Initial visit attempt: Family resting, Cost Estimating Manager left card offering congratulations and God's blessings for the of their son along with information regarding the availability of [facility] at [facility].
--- NOTE | 2022-03-20 10:31 | NUR ---
1030 LAYS IN BED COMPLAINS OF HEADACHE, AND THAT HER BACK HURTS HER. PATIENT UP TO BATHROOM WITH EYES CLOSED ENCOURAGE PATIENT TO KEEP EYES OPEN WHILE UP WALKING. ALSO ENCOURAGED PATIENT THAT SHE MAY FEEL BETTER IF SHE WAS UP MOVING AROUND. PATIENT STATES SHE HURTS TO BAD. ALL ORDERED PAIN MEDS GIVEN AT 10 AM. PATIENT STATES THAT WHEN DR THOMAS WAS ROUNDING HE SAID SHE COULD HAVE IV MORPHINE. NO ORDERS FOR MORPHINE ORDERED BY AT THIS TIME. IV HEPLOCK ALSO DISCONTINUED AT 10. PATIENT DENIES OTHERS NEEDS. VS NUBIAL. SOCIAL SERVICE JESSICA AT BEDSIDEFOR CONSULT
--- NOTE | 2022-03-20 15:56 | NUR ---
weigh and charge worker attempted to see patient, however, she was sleeping. Worker will see patient on 03/21/22 in the morning.
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
--- NOTE | 2022-03-20 16:07 | NUR ---
1600 states headache is coming back. ice pack applied to back of neck and back along with tylenol and motrin given. sits up in bed feeding baby
[2022-03-20 16:09] VITALS: BP 110/68; PULSE 72; TEMP 98.4
[2022-03-20 20:20] VITALS: BP 110/66; PULSE 77; TEMP 98.1
[2022-03-21 08:13] VITALS: BP 97/59; PULSE 63; TEMP 97.7
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
--- NOTE | 2022-03-21 15:45 | NUR ---
DISCHARGE INSTRUCTIONS REVIEWED WITH PT REGARDING PAIN MANAGEMENT, SONJA CARE, FOLLOW-UP AND BOARDER STATUS. QUESTIONS INVITED AND ANSWERED. PT VERBALIZES UNDERSTANDING AND DISCHARGED TO BOARDER STATUS.
== END 2022-03-21 15:50 | disposition home or self-care (01) | DRG 806 ==
LOC: OB 03-18 07:43 → LDR 03-19 13:02 → OB 03-19 13:02
PROVIDERS: ADMIT Obstetrics & Gynecology
PROC: 10E0XZZ Delivery of Products of Conception, External Approach (ICD-10-PCS; principal; 2022-03-19)
PROC: 0KQM0ZZ Repair Perineum Muscle, Open Approach (ICD-10-PCS; 2022-03-19)
PROC: 10907ZC Drainage of Amniotic Fluid, Therapeutic from Products of Conception, Via Natural or Artificial Opening (ICD-10-PCS; 2022-03-19)
DX: O48.0 Post-term pregnancy (principal); O72.1 Other immediate postpartum hemorrhage; Z37.0 Single live birth; Z3A.40 40 weeks gestation of pregnancy; Z86.16 Personal history of COVID-19; O99.02 Anemia complicating childbirth; D64.9 Anemia, unspecified; O99.344 Other mental disorders complicating childbirth; F41.9 Anxiety disorder, unspecified; G43.909 Migraine, unspecified, not intractable, without status migrainosus; O69.81X0 Labor and delivery complicated by cord around neck, without compression, not applicable or unspecified; O70.1 Second degree perineal laceration during delivery; O90.89 Other complications of the puerperium, not elsewhere classified
CPT/HCPCS: J2210; J2270; J2405; J2590; J7120

== ENCOUNTER 2022-10-15 23:54 | Emergency (ER) | payer MEDICAID ==
[~2022-10-15] VITALS: Ht 167.6 cm; Wt 54.5 kg
[~2022-10-15 23:54] MED LIST changes: +IBU600 MG PO
[2022-10-15 23:55] VITALS: TEMP 98.2
[2022-10-16 00:29] LABS: BASO % 0.5 % (0.0-2.0); EOS % 0.3 % (0.0-4.0); HEMATOCRIT 37.4 % (37.0-47.0); HEMOGLOBIN 12.2 g/dl (12.5-16.0); LYMPH # 1.9 K/mm3 (1.2-3.4); LYMPH % 30.4 % (20.0-51.0); MEAN CELL VOLUME 84 fl (80.0-100.0); MEAN CORPUSCULAR HEMOGLOBIN 28 pg (27-31); MEAN CORPUSCULAR HGB CONC 33 g/dl (33.0-37.0); MEAN PLATELET VOLUME 9.2 fl (7.4-10.4); MONO # 0.3 K/mm3 (0.1-0.6); MONO % 4.8 % (1.7-9.3); PLATELET COUNT 311 K/mm3 (130-400); RED BLOOD COUNT 4.44 M/mm3 (4.10-5.30); REDCELL DISTRIBUTION WIDTH-CV 13.9 % (11.5-14.5)
[2022-10-16 00:38] LABS: COLLECTION METHOD CLEAN CATCH
[2022-10-16 00:46] LABS: PH 7.5 (5.0-8.5); URINE APPEARANCE Hazy (CLEAR/HAZY); URINE BLOOD Negative (NEGATIVE); URINE COLOR Yellow (YELLOW); URINE GLUCOSE Negative (NEGATIVE); URINE KETONE TRACE (NEGATIVE); URINE NITRATE Negative (NEGATIVE); URINE PROTEIN(semi-quant) Negative (NEGATIVE); URINE UROBILINOGEN 0.2 E.U/dL (0.2-1.0)
[2022-10-16 00:48] LABS: MUCOUS Present (NOT PRESENT); URINE BACTERIA None Seen /hpf (NONE SEEN); URINE RBC 0-2 /hpf (0-2)
[2022-10-16 00:48] LABS: ALANINE AMINOTRANSFERASE 16 U/L (0-55); ALBUMIN 3.9 gm/dL (3.5-5.0); ALKALINE PHOSPHATASE 52 U/L (40-150); ANION GAP 9 mmol/L (7-16); AST,SGOT 14 U/L (5-34); BILIRUBIN,TOTAL 0.5 mg/dL (0.2-1.2); BLOOD UREA NITROGEN 6 mg/dL (7-19); CALCIUM 8.9 mg/dL (8.4-10.2); CARBON DIOXIDE 24 mmol/L (22-29); CHLORIDE 107 mmol/L (98-107); CREATININE, serum 0.68 mg/dL (0.57-1.11); GLUCOSE 98 mg/dL (70-99); POTASSIUM 3.5 mmol/L (3.5-4.5); SODIUM 140 mmol/L (136-145); TOTAL PROTEIN 6.5 gm/dL (6.2-8.1)
[2022-10-16 00:49] LABS: ALCOHOL(ethanol),MEDICAL < 10 mg/dL (0-10)
[2022-10-16 00:56] LABS: TRICYCLIC ANTIDEPRESS URINE NEGATIVE
[2022-10-16 01:16] VITALS: BP 135/98; PULSE 82
== END 2022-10-16 01:40 | disposition home or self-care (01) ==
LOC: COL.ER 23:54
PROVIDERS: Emergency Medicine
DX: S50.12XA Contusion of left forearm, initial encounter (principal); F15.10 Other stimulant abuse, uncomplicated; Z28.311 Partially vaccinated for COVID-19; Y04.0XXA Assault by unarmed brawl or fight, initial encounter

== ENCOUNTER 2022-11-14 05:30 | Emergency (ER) | payer MEDICAID ==
[~2022-11-14] VITALS: Ht 167.6 cm; Wt 56.8 kg
[2022-11-14 05:32] VITALS: TEMP 98.1
[2022-11-14 06:04] LABS: BASO % 0.5 % (0.0-2.0); EOS # 0.2 K/mm3 (0.0-0.7); EOS % 2.1 % (0.0-4.0); GRAN # 4.7 K/mm3 (1.4-6.5); GRAN % 61.5 % (42.2-75.2); HEMATOCRIT 40.2 % (37.0-47.0); HEMOGLOBIN 12.9 g/dl (12.5-16.0); LYMPH # 2.2 K/mm3 (1.2-3.4); LYMPH % 29.5 % (20.0-51.0); MEAN CELL VOLUME 86 fl (80.0-100.0); MEAN CORPUSCULAR HEMOGLOBIN 28 pg (27-31); MEAN CORPUSCULAR HGB CONC 32 g/dl (33.0-37.0); MEAN PLATELET VOLUME 9.7 fl (7.4-10.4); MONO # 0.5 K/mm3 (0.1-0.6); MONO % 6.1 % (1.7-9.3); PLATELET COUNT 336 K/mm3 (130-400); RED BLOOD COUNT 4.66 M/mm3 (4.10-5.30); REDCELL DISTRIBUTION WIDTH-CV 13.9 % (11.5-14.5)
[2022-11-14 06:24] LABS: ALBUMIN 4.1 gm/dL (3.5-5.0); BILIRUBIN,TOTAL 0.6 mg/dL (0.2-1.2); CALCIUM 9.1 mg/dL (8.4-10.2); CREATININE, serum 0.73 mg/dL (0.57-1.11); POTASSIUM 3.3 mmol/L (3.5-4.5); TOTAL PROTEIN 6.9 gm/dL (6.2-8.1)
[2022-11-14 07:00] VITALS: BP 99/76; PULSE 83
== END 2022-11-14 07:07 | disposition home or self-care (01) ==
LOC: COL.ER 05:30
PROVIDERS: Family Medicine
DX: G47.00 Insomnia, unspecified (principal); E86.0 Dehydration; F15.10 Other stimulant abuse, uncomplicated; E87.6 Hypokalemia; Z28.311 Partially vaccinated for COVID-19
CPT/HCPCS: J7120

== ENCOUNTER 2024-01-18 17:28 | Emergency (ER) | payer SELFPAY ==
[~2024-01-18] VITALS: Ht 167.6 cm; Wt 68.2 kg
[2024-01-18 20:11] LABS: CALCIUM 8.9 mg/dL (8.4-10.2); CREATININE, serum 0.69 mg/dL (0.57-1.11); POTASSIUM 3.1 mEq/L (3.5-4.5)
[2024-01-18 21:00] VITALS: BP 120/89; PULSE 94; TEMP 98.7
== END 2024-01-18 21:00 | disposition home or self-care (01) ==
LOC: COL.ER 17:28
PROVIDERS: Personal Emergency Response Attendant
DX: R06.4 Hyperventilation (principal); F41.9 Anxiety disorder, unspecified

== ENCOUNTER 2024-06-15 11:29 | Emergency (ER) | payer SELFPAY ==
[~2024-06-15] VITALS: Ht 167.6 cm; Wt 56.8 kg
[2024-06-15 11:32] VITALS: TEMP 97.6
[2024-06-15 12:30] LABS: BASO % 0.5 % (0.0-2.0); EOS # 0.1 K/mm3 (0.0-0.7); EOS % 1.4 % (0.0-4.0); GRAN # 5.5 K/mm3 (1.4-6.5); HEMATOCRIT 40.2 % (37.0-47.0); HEMOGLOBIN 13.6 g/dl (12.5-16.0); LYMPH # 1.8 K/mm3 (1.2-3.4); LYMPH % 22.5 % (20.0-51.0); MEAN CELL VOLUME 79 fl (80.0-100.0); MEAN CORPUSCULAR HEMOGLOBIN 27 pg (27-31); MEAN CORPUSCULAR HGB CONC 34 g/dl (33.0-37.0); MEAN PLATELET VOLUME 9.3 fl (7.4-10.4); MONO # 0.4 K/mm3 (0.1-0.6); MONO % 5.5 % (1.7-9.3); PLATELET COUNT 372 K/mm3 (130-400); RED BLOOD COUNT 5.06 M/mm3 (4.10-5.30); REDCELL DISTRIBUTION WIDTH-CV 14.5 % (11.5-14.5)
[2024-06-15 12:51] LABS: ALBUMIN 3.8 g/dL (3.5-5.0); BILIRUBIN,TOTAL 0.4 mg/dL (0.2-1.2); CREATININE, serum 0.71 mg/dL (0.57-1.11); POTASSIUM 3.2 mEq/L (3.5-4.5); TOTAL PROTEIN 7.4 g/dl (6.2-8.1)
[2024-06-15] MEDS ORDERED: ATARAX 25MG25 MG/TAB PO (13:04)
[2024-06-15 13:25] VITALS: BP 118/80; PULSE 86
== END 2024-06-15 13:25 | disposition home or self-care (01) ==
LOC: COL.ER 11:29
PROVIDERS: Physician Assistant
DX: F19.10 Other psychoactive substance abuse, uncomplicated (principal); F41.9 Anxiety disorder, unspecified; E87.6 Hypokalemia